=== PATIENT | female | born 1975 | race Caucasian/White ===

== ENCOUNTER 2019-08-26 13:16 | Outpatient (CLI) | payer OTHER | END 2019-08-26 13:21 | disposition home or self-care (01) | LOC: NUCLEAR 13:16 | DX: M81.0 Age-related osteoporosis without current pathological fracture (principal) ==

== ENCOUNTER 2023-10-13 13:23 | Outpatient (CLI) | payer OTHER | END 2023-10-13 13:42 | disposition home or self-care (01) | LOC: MAMO-SONO 13:23 | DX: Z12.39 Encounter for other screening for malignant neoplasm of breast (principal); Z01.411 Encounter for gynecological examination (general) (routine) with abnormal findings ==